=== PATIENT | male | born 1965 | race Caucasian/White ===

== ENCOUNTER → 2017-06-18 | Outpatient (CLI) | payer BC | END | disposition home or self-care (01) | LOC: RAD 06-11 13:00 → EDSTATUS 14:00 → RAD 14:15 | DX: I71.2 Thoracic aortic aneurysm, without rupture (principal); Q24.5 Malformation of coronary vessels; R07.9 Chest pain, unspecified; R94.39 Abnormal result of other cardiovascular function study | CPT/HCPCS: 75571; 75574 ==